=== PATIENT | female | born 1990 | race Two or more races ===

== ENCOUNTER 2024-02-04 16:58 | Emergency (ER) | payer MEDICAID, SELFPAY ==
[2024-02-04 17:20] VITALS: BP 111/77; PULSE 61; RESP 20; TEMP 36.9; O2SAT 97; BMI 28.3
--- NOTE | 2024-02-04 17:31 | XR_ITS ---
Examination: Abdomen sonogram, Limited Date and time of exam: February 04, 2024 at 1928 hrs. Indications: Right upper abdominal pain and nausea beginning today Technique: Real-time schwartz scale transabdominal sonographic images of the upper abdomen obtained. Findings: Multiple gallstones Gallbladder wall 0.2 cm Common bile duct 0.5 cm Pancreatic head 2.6 cm Liver 16.7 cm fatty infiltration smooth contour no focal liver lesions Normal hepatopedal portal venous flow Patent IVC Impression: Cholelithiasis, negative for cholecystitis
--- NOTE | 2024-02-04 17:32 | PD.EDABDPN ---
ED Abdominal Pain RME/HPI General Chief Complaint: Abdominal Pain Stated complaint: Right upper quadrant abdominal pain today Time seen by provider: 02/04/24 17:10 Arrival date/time: 02/04/24 16:58 RME / HPI RME / HPI narrative: 33-year-old female patient with no past medical history, came in for evaluation regarding right upper quadrant pain. Onset of symptoms for at least 24 hours, as sudden onset of right upper quadrant pain, described as dull ache, severity moderate associated with nausea, radiating to the back and upper chest. Patient denies any fever denies any vomiting denies any diarrhea or constipation denies any other complaints or medications taken prior to arrival. Related Data Home Medications ?Medication ?Instructions ?Recorded ?Confirmed prenat.vits,nellie,[id number] 1 tab PO QDAY 07/07/20 07/07/20 Previous Rx's ?Medication ?Instructions ?Recorded docusate sodium 100 mg capsule 100 mg PO BID 30 days 07/09/20 (Colace) #60 caps ibuprofen 600 mg tablet 600 mg PO QID PRN fever or pain 30 07/09/20 days #30 tabs dicyclomine 20 mg tablet 20 mg PO QID PRN abdominal pain 02/04/24 #30 tabs Allergies Allergy/AdvReac Type Severity Reaction Status Date / Time No Known Allergies Allergy Verified 07/07/20 21:27 Review of Systems Review of Systems Narrative Review of Systems: Review of system reviewed and within normal limits except mentioned in HPI ED Exam Narrative Physical exam: VITAL SIGNS: Reviewed. GENERAL APPEARANCE: Alert and interactive, follows commands, no acute distress, HEAD AND FACE: Non-traumatic. ENT: PERRL, pink conjunctivitis, eyelid no trauma, Mucous membrane moist. NECK: Supple, nontender, no nuchal rigidity. CHEST: No tenderness, no crepitus, no paradoxical movement, no retractions. LUNGS: Clear, well ventilated, symmetric, no rales, no wheezing, no ronchi, no stridor, good breath sounds bilaterally. HEART: Regular rate, regular rhythm, no murmur, no gallops. ABDOMEN: Soft, positive bowel sounds, nondistended, no guarding, right upper quadrant tenderness,, no rebound, no masses, RECTAL: Deferred. GENITAL: Deferred. NEUROLOGICAL: Gross motor function intact sensory function intact, Appropriate for age. MUSCULOSKELETAL: low back nontender, full range of motion. EXTREMITIES: Nontender, full range of motion. SKIN: Color pink, dry, no rash, no lacerations, no abrasions, no contusions. LYMPHATICS: Deferred. Course Quality Measures none Orders Category Date Time Status US gall bladder Stat Exams 02/04/24 17:31 Completed CBC Stat Lab 02/04/24 18:15 Completed Comprehensive Metabolic Panel Stat Lab 02/04/24 18:15 Completed HCG Qualitative,Urine Stat Lab 02/04/24 18:00 Completed Lipase Stat Lab 02/04/24 18:15 Completed Partial Thromboplastin Time Stat Lab 02/04/24 18:15 Completed Prothrombin Time with INR Stat Lab 02/04/24 18:15 Completed UA, C/S IF [Urinalysis, C/S if Indicated] Stat Lab 02/04/24 18:00 Completed Ketorolac Inj [Toradol Inj] Med 02/04/24 17:31 Discontinued 30 mg IM X1 ONE Ondansetron Odt [Zofran Odt] Med 02/04/24 17:31 Discontinued 4 mg PO X1 ONE Vital Signs Vital signs: Vital Signs Temperature 98.5 F 02/04/24 17:20 Pulse Rate 61 02/04/24 17:20 Respiratory Rate 20 02/04/24 17:20 Blood Pressure 111/77 02/04/24 17:20 Pulse Oximetry (%) 97 02/04/24 17:20 Oxygen Delivery Method Room Air 02/04/24 17:20 Abdominal Pain MDM MDM Narrative MDM Narrative:: 33-year-old female patient with no past medical history, came in for evaluation regarding right upper quadrant pain. Onset of symptoms for at least 24 hours, as sudden onset of right upper quadrant pain, described as dull ache, severity moderate associated with nausea, radiating to the back and upper chest. Patient denies any fever denies any vomiting denies any diarrhea or constipation denies any other complaints or medications taken prior to arrival. Patient's workup is significant for cholelithiasis with no sign of acute cholecystitis. CBC showed mild leukocytosis, LFTs are normal, Patient data External records reviewed:: None Clinical information provided by:: patient and none Social determinants that could affect healthcare access:: none Patient has the following chronic illnesses:: None How is presenting disease/condition affected by chronic disease/condition?: no chronic disease Evaluation data The following diagnostics were reviewed and interpreted by me:: lab results and radiology exam(s) Lab and/or radiology exams considered but not ordered:: None Interpretation Summary: Patient's workup all came back normal. Except for ultrasound that showed cholelithiasis no sign of acute cholecystitis. Results discussed with the patient. Medications / Prescriptions Medications or Prescriptions considered but not ordered:: None Medication administrations:: Medication Administration History Discontinued Medications Ketorolac Tromethamine (Ketorolac Inj 60 Mg/2 Ml Vial) 30 mg IM X1 ONE Stop: 02/04/24 17:32 Last Admin: 02/04/24 17:56 Dose: 30 mg Documented By: Ondansetron HCl (Ondansetron Odt 4 Mg Tabrap) 4 mg PO X1 ONE; Protocol Stop: 02/04/24 17:32 Last Admin: 02/04/24 17:56 Dose: 4 mg Documented By: Toradol IM and Zofran Consultations Consultation(s) initiated? (list below): No Diagnosis Differential diagnosis abdominal pain: abdominal pain and other (Cholelithiasis,) Most likely diagnosis given after review of the tests above:: Biliary colic, cholelithiasis Admission Indicated Admission indicated?: not indicated Explain why admission is indicated or not indicated:: Stable Admission Request Was there a request for admission?: No Disposition Plan Disposition Plan: Discharge Discharge Attestation Discharge Attestation: The patient and all family members were given an opportunity to ask questions and understood the discharge instructions. Discharge instructions specifically effects, indications for sooner follow up or return to the emergency department, and the expected course of current diagnosis. Patient condition: Stable Discharge Plan Plan Patient Disposition: HOME (Self Care) Disposition Comment: Stable Prescriptions/Referrals Prescriptions/Med Rec: New dicyclomine 20 mg tablet 20 mg PO QID PRN (Reason: abdominal pain) Qty: 30 0RF No Action prenat.vits,nellie,[id number] Tablet 1 tab PO QDAY ibuprofen 600 mg tablet 600 mg PO QID MDD 4 PRN (Reason: fever or pain) 30 Days Qty: 30 1RF docusate sodium [Colace] 100 mg capsule 100 mg PO BID MDD 2 30 Days Qty: 60 1RF Referrals: No Primary/Family,Physician [Primary Care Provider] - In 1 week Problem List Clinical Impression: Gallstone Patient/Caregiver Discharge Instructions Discharge Activity: activity as tolerated Education Materials: ED Gallstones with Biliary Colic Additional Instructions: Thank you for the opportunity for serving you today. You are stable for discharged . You are advised to: Follow-up with your PCP in 1 to 2 days and as per referral to general surgeon Return to ED for worsening of symptoms Increase oral fluids Take medication as prescribed Print Language: French Stand Alone Forms: Erica Award Info., Patient Portal Info Letter PA/WILNER Supervising Physician PA/WILNER Supervising Physician: MD Elisabeth
[2024-02-04] MEDS: ONDANSETRON ODT 4 MG TABRAP PO (17:56)
[2024-02-04] MEDS: KETOROLAC INJ 60 MG/2 ML VIAL 30 MG IM (17:56)
[2024-02-04 18:28] LABS: Basophils # (Auto) 0.1 Thou/mm3 (0.0-0.2); Basophils % (Auto) 0 % (0-2.5); Eosinophils # (Auto) 0.2 Thou/mm3 (0.0-0.5); Eosinophils % (Auto) 1 % (0-10); Hematocrit 39.4 % (36.0-46.0); Hemoglobin 13.2 g/dL (12.0-16.0); Immature Granulocytes % (Auto) 0 % (0-0); Immature Granulocytes Auto 0.05 Thou/mm3 (0.00-0.00); Lymphocytes % (Auto) 22 % (10-50); Mean Corpuscular HGB Conc 33.5 g/dl (31.0-37.0); Mean Corpuscular Hemoglobin 29.3 pg (25.0-35.0); Mean Corpuscular Volume 87 fL (80-100); Monocytes # (Auto) 0.8 Thou/mm3 (0.0-0.8); Monocytes % (Auto) 5 % (0-12); Neutrophils # (Auto) 9.8 Thou/mm3 (1.8-7.7); Neutrophils % (Auto) 71 % (37-80); Nucleated Red Blood Cell % 0 /100 WBC (0); Platelet Count 248 Thou/mm3 (140-440); RDW Standard Deviation 40.4 fL (36.4-46.3); Red Blood Count 4.51 Miln/mm3 (4.00-5.20); White Blood Count 13.8 Thou/mm3 (3.6-11.0)
[2024-02-04 18:30] LABS: Collection Type, Urine Clean Catch
[2024-02-04 18:39] LABS: Bilirubin,Urine Negative (Negative); Blood,Urine Negative (Negative); Clarity,Urine Clear (Clear/Hazy); Color,Urine Yellow (Lt Yel-Yel); Culture Indicated,Urine Not Indicated; Glucose, Urine Negative (Negative); Ketones,Urine Negative (Negative); Leukocyte Esterase,Urine Negative (Negative); Nitrite,Urine Negative (Negative); PH,Urine 5.5 (5.0-7.0); Protein,Urine Trace (Neg - Trace); RBC,Urine 4 /hpf (0-3); Specific Gravity,Urine 1.032 (1.001-1.035); Squamous Epithelial Cell,Urine 2 /hpf (0-5); Urobilinogen,Urine Negative mg/dL (0.0-1.0); WBC,Urine 1 /hpf (0-5)
[2024-02-04 18:39] LABS: INR 0.9 (0.9-1.3); Partial Thromboplastin Time 27.5 Seconds (22.0-36.0); Prothrombin Time 10.3 Seconds (9.0-12.2)
[2024-02-04 18:43] LABS: HCG Qualitative,Urine Negative
[2024-02-04 18:44] LABS: Alanine Aminotransferase 14 U/L (10-49); Albumin, Serum 4.6 gm/dL (3.5-5.0); Anion Gap 7 (7-16); Aspartate Amino Transferase 13 U/L (0-34); BUN/Creatinine Ratio 18 Ratio (12-20); Bilirubin,Total 0.5 mg/dL (0.3-1.2); Blood Urea Nitrogen 11 mg/dL (9-23); Calcium 9.1 mg/dL (8.3-10.6); Calcium (Corrected) 9.1 mg/dL (8.5-10.1); Carbon Dioxide 24.2 mMol/L (20.0-31.0); Chloride 106 mMol/L (98-107); Creatinine (Component) 0.6 mg/dL (0.6-1.3); Estimated Creatinine Clearance 113.9 mL/min (>60); Glucose 113 mg/dL (74-106); Osmolality,Calculated 274 (275-295); Potassium 3.9 mMol/L (3.4-5.1); Sodium 137 mMol/L (136-145); Total Protein 7.5 gm/dL (5.7-8.2); eGFR > 60 See Note
[2024-02-04 18:45] LABS: Albumin/Globulin Ratio 1.6 (1.2-2.2); Alkaline Phosphatase 107 U/L (46-116); Globulin 2.9 gm/dL (2.3-3.5); Lipase 31 U/L (12-53)
[2024-02-04 21:03] VITALS: BP 130/68; PULSE 80; RESP 18; TEMP 36.6; O2SAT 100
== END 2024-02-04 21:12 | disposition home or self-care (01) ==
PROVIDERS: Nurse Practitioner Family; Emergency Provider Emergency Medicine
DX: K80.20 Calculus of gallbladder without cholecystitis without obstruction (principal)
CPT/HCPCS: 36415; 76705; 80053; 81001; 81025; 83690; 85025; 85610; 85730; 96372; 99284; J1885; Q0162